=== PATIENT | male | born 1975 | race Caucasian/White ===

== ENCOUNTER → 2018-07-15 15:31 | Outpatient (CLI) | payer OTHER, SELFPAY ==
--- NOTE | 2018-07-15 15:41 | MRI_ITS ---
STUDY: MRI RIGHT ANKLE WITHOUT CONTRAST REASON FOR EXAM: Right heel pain with walking and running, evaluate for Achilles tendinitis. TECHNIQUE: Standardized fat and water weighted pulse sequences were obtained in all 3 orthogonal planes. COMPARISON: None. FINDINGS: Normal subcutis adipose space. There is very small volume of fluid in the proximal posterior tibialis tendon sheath (inversion recovery axial images 1, 2). The posterior tibialis tendon is morphologically normal. Normal flexor digitorum longus tendon. Normal flexor hallucis longus tendon. There is a small longitudinal split of the perimalleolar peroneus brevis tendon with a C shaped configuration (T1 axial images 12-16). Normal peroneus longus tendon. Normal tibialis anterior tendon. Normal extensor hallucis longus tendon. Normal extensor digitorum longus tendons. Normal Achilles tendon and teno-osseous insertion without increased intrasubstance signal or fusiform thickening. There is a small posterior calcaneal enthesophyte. There is no retrocalcaneal bursitis. Normal plantar fascia. There is a small plantar calcaneal enthesophyte. Normal intrinsic muscles of the rearfoot. Normal distal tibiofibular syndesmotic ligamentous complex. Normal lateral ligamentous complex. Normal subtalar ligaments and sinus tarsi. Normal deltoid ligamentous complexes. Normal plantar calcaneonavicular (spring) ligament. Normal tibiotalar articulation. Normal talar dome. There is a small anterior spur of the head/neck junction of the talus (T1 sagittal image 12) Normal subtalar articulations. Normal talonavicular articulation. Normal calcaneocuboid articulation. Normal navicular-cuneiform articulations. MRI/Lower Ext Joint Only (Routine) IMPRESSION: Small longitudinal split of the peroneus brevis tendon. Very mild posterior tibialis tenosynovitis. Small calcaneal enthesophytes. Small anterior spur of the head/neck junction of the talus. No demonstrated Achilles tendinosis. Electronically Signed: Gerard Mcclure MD at 14:44 EDT Tel , Service support ,
== END ==
PROVIDERS: Family Provider Nurse Practitioner Family; PCP Nurse Practitioner Family; Referring Provider Podiatrist; Visit Provider Podiatrist
DX: M76.61 Achilles tendinitis, right leg (principal); M77.31 Calcaneal spur, right foot
CPT/HCPCS: 73721

== ENCOUNTER → 2018-07-23 16:50 | Outpatient (CLI) | payer OTHER, SELFPAY ==
[2018-07-23 17:34] LABS: Absolute Lymphocyte Count 2.78 X10^3/ul (0.83-4.51); Absolute Neutrophil Count 4.6 X10^3/uL (2.0-7.7); Basophil# 0.03 X10^3/uL; Basophil% 0.4 % (0-1); Eosinophils% 1.2 % (0-5); Hematocrit 43.9 % (40-54); Hemoglobin 15.6 g/dl (13.0-16.5); Lymphocyte # 2.78 X10^3/ul (4.0); Lymphocyte % 33.9 % (19-41); Mean Corp Hgb Conc 35.5 g/gl (32-36); Mean Corpuscular Hgb 29.3 pg (27.0-32.0); Mean Corpuscular Volume 82.4 fL (80-94); Mean Platelet Vol. 11.7 fl (6.2-12.0); Monocyte# 0.66 X10^3/uL; Monocyte% 8.1 % (0-10); Neutrophil # 4.59 X10^3/uL (2.7-7.7); Platelet Count 210 K/mm3 (150-450); RBC Distribution Width CV 13.2 % (11.6-14.6); RBC Distribution Width SD 39.5 fl (35.1-43.9); Red Blood Count 5.33 M/mm3 (4.6-6.2); White Blood Count 8.2 K/mm3 (4.4-11.0)
[2018-07-23 17:36] LABS: POSITIVE COUNT NO; POSITIVE DIFFERENTIAL NO; POSITIVE MORPHOLOGY NO
[2018-07-23 17:58] LABS: Albumin, Serum 4.1 g/dL (3.2-5.0); BUN 16 mg/dL (7-18); BUN/Creat Ratio 13.3 RATIO (10-20); EST Glomerular Filtration Rate 70 mL/min (>60); Est Glom Filt Rate - Afr Amer 85 mL/min (>60); Glucose 89 mg/dL (74-106); Protein, Total 7.6 g/dL (6.4-8.2)
[2018-07-23 17:59] LABS: ALB/GLOB Ratio 1.2 RATIO (0.9-2.4); AST(SGOT) 31 U/L (15-37); Alanine Aminotransfer ALT/SGPT 52 U/L (16-61); Alkaline Phosphatase 50 U/L (45-117); Anion Gap 6 (5-15); Calcium,Total 9.6 mg/dL (8.5-10.1); Chloride 103 mmol/L (98-107); Globulin 3.5 g/dL (2.2-4.2); Potassium 3.7 mmol/L (3.5-5.1); Sodium Level 140 mmol/L (136-145)
== END ==
PROVIDERS: Family Provider Nurse Practitioner Family; PCP Nurse Practitioner Family; Visit Provider Family Medicine
DX: Z01.818 Encounter for other preprocedural examination (principal)
CPT/HCPCS: 36415; 80053; 85025

== ENCOUNTER 2018-08-08 07:52 | Day surgery (SDC) | payer OTHER, SELFPAY ==
[2018-08-08] VITALS (7 sets, daily range): BP systolic 101–140; BP diastolic 63–96; PULSE 61–84; RESP 15–18; TEMP 36.2–36.7; O2SAT 94–99; BMI 38.3
--- NOTE | 2018-08-08 09:30 | RAD_ITS ---
STUDY: X-RAY - RIGHT CALCANEUS REASON FOR EXAM: Male, 42 years old. Intraoperative assessment TECHNIQUE: A limited lateral view of the calcaneus was obtained. COMPARISON: Right ankle MRI dated July 15, 2018 FINDINGS: There are surgical changes along the upper posterior aspect of the calcaneus. There is air in the adjacent soft tissues. There is minimal spurring off the inferior calcaneus. Fluoroscopy time 12 seconds. Cumulative dose 0.1145 mGy. RAD/Calcaneus min 2 Views IMPRESSION: A limited lateral image of the right calcaneus was obtained intraoperatively. Electronically Signed: Vijaya Whyte MD at 17:03 EDT Tel Direct: [phone], Service support ,
--- NOTE | 2018-08-08 09:30 | TESH_PTH ---
PATIENT: SUSI CORONADO LOC: [facility] [place] U#:[id number] AGE/SX: 42/M ROOM: RE08/08/[address]: Dr. Allan Padron DPM : 1975 BED: DIS: 08/08/2018 SPEC #: [id number] RECD: 08/08/18 13:39 STATUS: REBECA PUJA #: [id number] DMITRIY: 08/08/18 09:[address]: Allan Padron DEPT: SURGICAL PATHOLOGY RECD BY: Roslyn Hartman ENTERED: 08/08/18 14:56 SP TYPE: TENDON OTHR DR: Pasha Haider, ACQUISITION MANAGER-Annie Tissues: Tendon and tendon sheath, NOS Procedures: Decalcification bone/plaque Surgery Specimen Level III HEADER OPERATION: Lower extremity, detach/reattach Achilles tendon with debridement PRE-OP DIAGNOSIS: Right foot retrocalcaneal spur, Clau's deformity, Achilles tendonitis TISSUE SUBMITTED: Resected right heel spur and debrided Achilles tendon tissue MICROSCOPIC DIAGNOSIS Resected right heel spur and debrided Achilles tendon tissue: Pieces of bone and soft tissue with reactive changes. NORAH:marc 08/13/18 MICROSCOPIC DESCRIPTION Slides are reviewed. GROSS DESCRIPTION Received in fixative is one container labeled with the patient's name and designated resected right heel spur. The specimen consists of multiple irregular and discoid fragments of clark-white bone that in aggregate measure 5 x 3 x 1.8 cm. Also present in the specimen container are two irregular fragments of white-clark soft tissue measuring in aggregate 2.5 x 2 x 0.2 cm. Lead Java Software Engineer sections of bone and soft tissue are submitted in two cassettes after decalcification. / AM:marc 08/08/18 TC:5 CPT: 63925, 34077
[2018-08-08] MEDS: Cefazolin 2 GM in 0.9% Normal Saline 100 ML IV (10:26)
[2018-08-08] MEDS: Bupivacaine Mpf 0.5% 30 ML VIAL (11:48)
--- NOTE | 2018-08-08 12:03 | PCM.DC.POD ---
Discharge Diet: No Restrictions Discharge Activity: May Not Drive Weight Bearing Status: No weight bearing - No weight right foot/ankle Keep extremity elevated above heart level: Right Leg - Keep right foot elevated for 50 minutes of every hour with pillows, keep heels offloaded Call your doctor if your incision/area has: Continuous Slow Oozing, Sudden Increased Bleeding, Foul Smelling Discharge Call your doctor if you observe: Fever of 101 or Higher, Shortness of breath, Chest pain, Increased palpitations (irregular heartbeat), Calf discomfort, Uncontrolled pain Cleanse incision/area with: Do not get Incision Wet, Keep Dressing Clean & Dry Allergies/Adverse Reactions: Allergies No Known Allergies Allergy (Verified 08/01/18 15:19) Medications to take at Discharge Lisinopril/Hydrochlorothiazide [Zestoretic 20/25 Tablet] 1 tablet PO DAILY 08/24/14 Multivitamins,Therapeutic [Multivitamin] 1 tablet PO DAILY 08/24/14 Fenofibrate Nanocrystallized [Fenofibrate] 160 mg PO DAILY 08/01/18 Oxycodone HCl/Acetaminophen [Percocet 5/325] 1 - 2 tab PO Q6H PRN PRN 3 Days #30 tab 08/08/18 Rivaroxaban [Xarelto] 10 mg PO DAILY #15 tab 08/08/18 The following prescriptions were given: Oxycodone HCl/Acetaminophen [Percocet 5/325] 1 - 2 tab PO Q6H PRN PRN 3 Days #30 tab PRN Reason: Pain Rivaroxaban [Xarelto] 10 mg PO DAILY #15 tab Primary Care Physician: Pasha Haider, NATIONAL ACCOUNTS RECRUITER-C [Primary Care Provider] - Test Results: Test results from this visit will be discussed in further detail at your follow-up appointment, if applicable. Please Follow Up With: Allan Padron DPM When: within 1 week, sooner if needed
--- NOTE | 2018-08-08 12:06 | DCINST_ITS ---
Discharge Diet: No Restrictions Discharge Activity: May Not Drive Weight Bearing Status: No weight bearing - No weight right foot/ankle Keep extremity elevated above heart level: Right Leg - Keep right foot elevated for 50 minutes of every hour with pillows, keep heels offloaded Call your doctor if your incision/area has: Continuous Slow Oozing, Sudden Increased Bleeding, Foul Smelling Discharge Call your doctor if you observe: Fever of 101 or Higher, Shortness of breath, Chest pain, Increased palpitations (irregular heartbeat), Calf discomfort, Uncontrolled pain Cleanse incision/area with: Do not get Incision Wet, Keep Dressing Clean & Dry Allergies/Adverse Reactions: Allergies No Known Allergies Allergy (Verified 08/01/18 15:19) Medications to take at Discharge Lisinopril/Hydrochlorothiazide [Zestoretic 20/25 Tablet] 1 tablet PO DAILY 08/24/14 Multivitamins,Therapeutic [Multivitamin] 1 tablet PO DAILY 08/24/14 Fenofibrate Nanocrystallized [Fenofibrate] 160 mg PO DAILY 08/01/18 Oxycodone HCl/Acetaminophen [Percocet 5/325] 1 - 2 tab PO Q6H PRN PRN 3 Days #30 tab 08/08/18 Rivaroxaban [Xarelto] 10 mg PO DAILY #15 tab 08/08/18 The following prescriptions were given: Oxycodone HCl/Acetaminophen [Percocet 5/325] 1 - 2 tab PO Q6H PRN PRN 3 Days #30 tab PRN Reason: Pain Rivaroxaban [Xarelto] 10 mg PO DAILY #15 tab Primary Care Physician: Pasha Haider, CARPENTER PACKING-C [Primary Care Provider] - Test Results: Test results from this visit will be discussed in further detail at your follow- up appointment, if applicable. Please Follow Up With: Allan Padron DPM When: within 1 week, sooner if needed
--- NOTE | 2018-08-08 12:06 | PCM.OPRPT ---
Report of Operation Date of Procedure: 08/08/18 Pre-Operative Diagnosis: Retrocalcaneal spur, haglunds deformity, achilles tendinosis right Post-Operative Diagnosis: Same Surgery/Procedure Performed:: Excision of retrocalcaneal spur/Clau's deformity with achilles tendon repair, right Description of Surgical Findings:: Significant retrocalcaneal spur and clau's deformity, insertional achilles tendinosis, right automobile service writer: Yes - Dr. Giraldo Type of Anesthesia:: General Specimen's removed: Excised retrocalcaneal spur/Clau's Deformity and debrided achilles tendon (right) sent to pathology Estimated Blood Loss (mL): 5mL Description of Procedure: Indications: This is a 42 year old gentleman with chronic right posterior heel pain. He had the same problem on the left side ~2 years ago, and did very well with surgical intervention. He has now elected to undergo right detach/reattach Achilles tendon with resection of posterior heel spur/exostosis Clau's deformity and debride/repair Achilles tendon. This was discussed with him in great detail, reviewed the possible benefits vs risks and potential complications. Typical post op recovery was reviewed with him. The goals and the expectations were reviewed with him in detail. The consent forms were reviewed with him in detail, and he freely signed them. No guarantees were given. All of his questions were answered. Operative Procedure: The patient was brought back into the operating room. A time out was performed and the patient was properly identified and the surgical plan was confirmed. The patient received 2 g of IV Cefazolin for antibiotic prophylaxis. A well padded pneumatic tourniquet was applied around the right thigh. The patient received general per the anesthesiologist. The patient was placed on the operating room table in the prone position, with good padding and offloading for the bony prominences. H was carefully secured to the operating room table with a safety belt around his waist. The right foot/ankle/leg was scrubbed, prepped, draped in the usual aseptic fashion. The right foot and ankle were elevated for 3 minutes and the right thigh pneumatic tourniquet was inflated to 300mmHg. Attention was directed to the posterior heel. There was a palpable exostosis and Clau's deformity present at the level of the posterior calcaneus. A linear incision was made using a 15 blade to the posterior aspect of the distal Achilles tendon and posterior calcaneus. Careful blunt dissection was completed down through the subcutaneous tissue layer, down to the Achilles tendon and posterior calcaneus. The distal Achilles tendon was incised at the level of the midline, and was partially reflected off of the central posterior calcaneus exposing the retrocalcaneal spur and Clau's deformity. The retrocalcaneal spur and the Clau's deformity was resected using a powered sagittal saw and a powered rasp, the resected bone was sent to pathology. The Achilles tendon was also noted to be thickened, calcified, hard with nonviable tissue present at the level of the insertion point; this was debrided down to healthy viable normal tendon. The debrided tendon was sent to pathology as well with the resected bone. Otherwise the rest of the tendon was noted to be healthy and viable appearing. The site was flushed out with copious amounts of normal saline solution. The Achilles tendon was reattached to the central portion of the posterior calcaneus using 1 Arthrex Speedbridge using the standard manufacture's recommended technique as listed in the technique guide. 3-0 Vicryl was also used to reapproximate the midline Achilles tendon incision. The subcutaneous tissue layer was reapproximated using 3-0 Vicryl. the skin was reapproximated using 4-0 Monocryl. Intraoperative fluoroscopy was obtained confirming proper resection of the spur and Clau deformity. The pneumatic tourniquet was deflated at 57 minutes, there was immediate return of warmth and perfusion to the foot and to all toes on the foot with normal temperature present. CFT < 2 seconds to all toes. 7.5mL of 0.5% bupivacaine plain was given as a local nerve block around the surgical site. A dressing was applied which consisted of Cavilon to the sutured skin incisions, steristrips, Betadine soaked adaptic, 4x4 gauze, kerlix and cheryl bandage, and a well padded below the knee posterior splint offloading the posterior heel. The patient tolerated the above operative procedure well at the anesthesia well with no complication. The patient was carefully repositioned into the supine position. The patient was transported to the recovery room with vital signs stable and in good condition. Post operative orders were placed. Post operative instructions were reviewed with him as well as his , who was with him today. No weightbearing right foot, keep right foot elevated for at least 50 minutes of every hour, keep dressing clean, dry and intact. Keep heel offloaded at all times. Prescription for Percocet 5mg/325mg was prescribed: 1-2 tabs PO q 6 hours PRN pain for pain control, as well as Xarelto 10mg PO once a day for DVT prophylaxis. He is to follow up with me within 1 week or sooner if needed. Post operative right calcaneal xrays were obtained in the recovery room which confirmed resection of the retrocalcaneal spur / Clau deformity, otherwise no acute changes and stable xrays. Grafts/Implants Used: Arthrex Speedbridge - Complications None
--- NOTE | 2018-08-08 12:31 | RAD_ITS ---
STUDY: X-RAY - RIGHT CALCANEUS REASON FOR EXAM: Male, 42 years old. Postop TECHNIQUE: 3 view(s) of the calcaneus were obtained. COMPARISON: None. FINDINGS: Postoperative changes involving the dorsal calcaneus. Subtalar joints are intact. Soft tissues are intact. RAD/Calcaneus min 2 Views IMPRESSION: Postoperative changes involving the dorsal calcaneus. Electronically Signed: Kenny Loya MD at 22:10 EDT Tel , Service support ,
== END 2018-08-08 13:36 | disposition home or self-care (01) ==
LOC: SDC 07:53 → AC 07:54
PROVIDERS: Family Provider Nurse Practitioner Family; PCP Nurse Practitioner Family; Referring Provider Podiatrist; Visit Provider Podiatrist
PROC: (CPT 28899; principal; 2018-08-08 09:15)
DX: M77.31 Calcaneal spur, right foot (principal); M92.61 Juvenile osteochondrosis of tarsus, right ankle; M89.9 Disorder of bone, unspecified; I10 Essential (primary) hypertension; E78.00 Pure hypercholesterolemia, unspecified
CPT/HCPCS: 01472; 27650; 28119; 73650; 76000; 88304; 88311; C1713; J7120; J2405

== ENCOUNTER → 2018-09-17 11:01 | Outpatient (CLI) | payer OTHER, SELFPAY ==
--- OUTSIDE RECORDS SUMMARY | 2018-11-03 13:54 | XMS RPT_ITS ---
:1975 Author Organization [place] Support Name Relationship Address Phone CORONADO ADRIENNE Unavailable Unavailable + CORONADO, ADRIENNE Unavailable Unavailable + CORONADO, ADRIENNE Unavailable Unavailable + CORONADO, ADRIENNE Unavailable Unavailable + CORONADO, KEVIN Unavailable [address] + [place] [address] [facility] Unavailable [address] + [place] [address] CORONADO, KEVIN Unavailable [address] + [place] [address] [facility] Unavailable [address] + [place] [address] CORONADO, ADRIENNE Unavailable Unavailable + CORONADO, ADRIENNE Unavailable Unavailable + CORONADO, ADRIENNE Unavailable Unavailable + CORONADO, ADRIENNE Unavailable Unavailable + CORONADO, KEVIN Unavailable [address] + [place] [address] [facility] Unavailable [address] + [place] [address] CORONADO, KEVIN Unavailable [address] + [place] [address] [facility] Unavailable [address] + [place] [address] CORONADO, KEVIN Unavailable [address] + [place] [address] [facility] Unavailable [address] + [place] [address] CORONADO, ADRIENNE Unavailable Unavailable + CORONADO, ADRIENNE Unavailable Unavailable + Care Team Providers Name Role Phone PASHA HAIDER CNP Attending Unavailable PASHA HAIDER CNP Primary Care Unavailable PASHA HAIDER CNP Attending Unavailable PASHA HAIDER CNP Primary Care Unavailable PASHA HAIDER CNP Attending Unavailable PASHA HAIDER CNP Primary Care Unavailable PASHA HAIDER CNP Attending Unavailable EARNEST MANN, PASHA Knight Primary Care Unavailable PASHA HAIDER CNP Attending Unavailable PASHA HAIDER CNP Primary Care Unavailable Elielnning, Allan Attending Unavailable Vito, Allan Referring Unavailable Pasha Haider FISH WORM GROWER-C Primary Care Unavailable Pasha Haider [employer]-C Primary Care Unavailable Neil Dixon Attending Unavailable Vito, Allan Attending Unavailable Pasha Haider [employer] WORM GROWER-C Primary Care Unavailable Wunning, Allan Referring Unavailable Mary White Attending Unavailable Pasha Haider [employer] W[employer] GROWER-C Primary Care Unavailable Wunning, Allan Consulting Unavailable Wunngisell, Allan Attending Unavailable Elielnngisell, Allan Referring Unavailable Pasha Haider [employer]-C Primary Care Unavailable PROBLEMS PROBLEMS DATE TYPE CONDITION / CODE ATTENDING STATUS SOURCE 08/26/2018 Admitting Metabolic syndrome EARNEST MANN, Active [facility] Diagnosis / E88.81(ICD-10) PASHA Neff Repository 08/08/2018 Unknown M76.61 - Achilles Wunning, Active Renetta tendinitis, right [facility] leg / Hospital M76.61(ICD-10) Repository 08/08/2018 Unknown M77.31 - Calcaneal Wunning, Active [place] spur, right foot / [facility] M77.31(ICD-10) Hospital Repository 02/25/2018 Admitting Essential EARNEST MANN, [facility] (primary) PASHA Neff hypertension / Repository I10(ICD-10) 02/25/2018 Admitting Hyperlipidemia, 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, 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 [facility] Diagnosis unspecified / PASHA Neff E78.5(ICD-10) Repository PROCEDURES PROCEDURES No Procedure Records FoundRESULTS RESULTS TSH Collected: 10/02/2018 Status: F Source: [place] 9:57 AM [facility] REPOSITORY TYPE CODE TESTS RESULT OUT OF RANGE REFERENCE UNITS LAB TSH(LOINC) 0.36-3.74 mcIU/mL TSH 0.90 Performed By: #### TSH, FT4 #### [facility] [address] [place] [address] FT4 Collected: 10/02/2018 Status: F Source: [facility] 9:57 AM [facility] REPOSITORY TYPE CODE TESTS RESULT OUT OF RANGE REFERENCE UNITS LAB FT4(LOINC) 0.76-1.46 ng/dL Free T4 0.85 Performed By: #### TSH, FT4 #### [facility] [address] [place] [address] NM MYOCARDIAL SPECT Observed: 10/01/2018 Status: F Source: [place] STRESS/REST 8:30 AM [facility] REPOSITORY ORIGINAL NM MYOCARDIAL SPECT STRESS/REST CLINICAL STATEMENT: CHEST PAIN TECHNIQUE: Lexiscan dose:0.4 mg Radiopharmaceutical (stress): Tc-99m Sestamibi Dose:10.6 mCi Radiopharmaceutical (rest): Tc-99m Sestamibi Dose:31.5 mCi SPECT acquisition and processing Reconstruction and reorientation of SPECT images into short axis, vertical and horizontal long axis planes Quantitative LVEF assessment COMPARISON:None REPORT:Left ventricle appears mildly dilated on both stress and rest images. On the resting images, there is reduced radiotracer uptake in the anterior/anteroseptal, inferoapical and basal to mid inferior region. On the stress images, there is near normalization of resting perfu paulina defect in the inferior region as well as anterior and/anteroseptal region, suggestive of inferior diaphragmatic and soft tissue/breast attenuation artifact. Rest of the myocardium has homogenous radiotracer uptake on the stress images. Gated SPECT imaging revealed normal wall motion and normal end systolic brightening and thickening of all myocardial segments. Calculated LVEF 52%. TID ratio 1.0 and left ventricle end-diastolic volume 155 mL. IMPRESSION: 1. No evidence of inducible ischemia or prior myocardial infarction. 2. Abnormal septal motion with normal left ventricular systolic function, LVEF 52%. 3. Mildly dilated left ventricle. 4. No prior study available for comparison. Interpreted By: Thien Beach Preliminary Report By: Thien Beach Electronically Signed By: Thien Beach Dictated Date: 10/01/2018 12:35:25 PM Prelim Date: 10/01/2018 12:35:25 PM Sign Date: 10/01/2018 12:40:19 PM EMERGENCY DEPARTMENT Observed: 09/25/2018 Status: F Source: [place] SUMMARY 8:52 PM [facility] REPOSITORY [facility] Medical Records Department [address] [place] [address] Emergency Department Summary 09/25/189 MR#: [id number] Acct: [id number] Name: SUSI CORONADO Rep #: [id number] : 1975 43 From: Neil Dixon MD PCP: TWIN Tamayo Status: REG ER - ER Visit Summary Date of Service: 09/25/18 Chief Complaint: Acute right leg swelling History of Present Illness: The patient is a 43 M who is 7 weeks postop right heel spur. He was sent to the emergency room to evaluate for DVT. He states the swelling started past 24-48 hours. He denies chest pain or shortness of breath. He denies right lower extremity pain. He denies paresthesia, anesthesia motors. He has no symptoms of claudication. There is a history hypertension. Physical Examination: The right lower extremity is swollen. There is no leg vein distention. There is no palpable cords. DP and PT pulses are palpable. He has full active range of motion of his toes, ankle and knee. Heart is regular without murmur, gallop or rub. Lungs are clear to auscultation. Vital signs noted and blood pressure is elevated 167/91. Test Results: Venous duplex study of the right lower extremity was negative for DVT per radiologist Emergency Department Course and Treatment: Venous duplex to evaluate for DVT versus lymphedema Treatment Plan: Home-going instructions for lymphedema Disposition: Discharged home in stable condition with spouse Impression: Lymphedema right lower extremity status post surgery This note was generated with AIMation software. It may contain incorrect words, spelling, and punctuation that were not noted in review of the chart prior to signing ED Disposition - Plan for ED Patient: Disposition: Home or Assisted Living Chief Complaint: Lower Extremity Injury Instructions: ED Lymphedema Referrals: Pasha Haider NP-C [Primary Care Provider] - As Needed What to do if you have Problems For any increased pain, shortness of breath, bleeding, nausea or vomiting, chest pain, or any unexpected problems, contact your Primary Care Provider. Call [facility] ([phone]) or report to the closest Emergency Room. Call 911 if necessary. 09/25/182051 <Electronically signed by Neil Dixon MD> Date Neil Dixon MD Cosigner Signature (If Indicated): Date CC: TWIN Haider VENOUS DUPLEX Observed: 09/25/2018 Status: F Source: [place] IMAG/LIMITED/UNI 7:55 PM [facility] REPOSITORY [facility] Imaging Services [address] [place] [address] Venous Duplex Imag/Limited/Uni MR#: [id number] Acct: [id number] Name: SUSI CORONADO Tracey Rep #: [id number] : 1975 43 From: Allan Mccartney MD PCP: TWIN Tamayo Status: REG ER Study: Venous Duplex Imag/Limited/Uni Date of Exam: 09/25/18 Exam# [id number] Ordering Dr: Neil Dixon MD STUDY: VENOUS DOPPLER ULTRASOUND - RIGHT LOWER EXTREMITY REASON FOR EXAM: Male, 43 years old. Swelling TECHNIQUE: Ultrasound evaluation of the deep vein system to include nicolas-scale imaging and compression was performed. Nicolas-scale imaging and Doppler sonographic evaluation, including duplex spectral analysis and qualitative color flow sonography, was performed. COMPARISON: None. FINDINGS: Common Femoral Vein: Normal compression, spontaneity and augmentation. Normal color Doppler. Common Femoral Vein/Greater Saphenous Junction: Normal compression, spontaneity and augmentation. Normal color Doppler. Deep Femoral Vein: Normal compression, spontaneity and augmentation. Normal color Doppler. Femoral Proximal: Normal compression, spontaneity and augmentation. Normal color Doppler. Femoral Middle: Normal compression, spontaneity and augmentation. Normal color Doppler. Femoral Distal: Normal compression, spontaneity and augmentation. Normal color Doppler. Popliteal Vein: Normal compression, spontaneity and augmentation. Normal color Doppler. Posterior Tibial Vein: Normal compression, spontaneity and augmentation. Normal color Doppler. Peroneal Vein: Normal compression, spontaneity and augmentation. Normal color Doppler. US/Venous Duplex Imag/Limited/Uni IMPRESSION: Normal venous Doppler ultrasound of the lower extremity. Electronically Signed: Allan Mccartney MD at 20:38 EST , Service support , CC: TWIN Haider; Neil Dixon MD Rn Transitional Care: Signed Observed: 09/17/2018 Status: F Source: [place] CULTURE, DEEP WOUND 12:00 AM [facility] REPOSITORY AEROBIC SWAB ONLY RECEIVED. ANAEROBES MAY BE AFFECTED. Gram Stain Gram Stain No organisms seen Wound Culture ORGANISM 1: Staphylococcus aureus Amount Growth 3+ Staphylococcus aureus: REACTION Benzylpenicillin NF >=0.5 R Cefoxitin *NF - Clindamycin $$ <=0.25 S Inducable Clindamycin Resistan - Erythromycin $ <=0.25 S Gentamicin $ <=0.5 S Levofloxacin $ <=0.12 S Linezolid $$$$ 2 S Moxifloxicin *NF <=0.25 S Oxacillin NF 0.5 S Tigecycline $$$$ <=0.12 S Rifampin $$ <=0.5 S Tetracycline NF <=1 S Trimethoprim/Sulfametho $ <=10 S Vancomycin $ 1 S (NF) indicates non-formulary drug at [facility]. Approval by Infectious Disease Specialist required before non-formulary drugs may be ordered and/or dispensed. * CLSI guidelines does not recommend testing of cephalosporins. This interpretation is deduced from Beta-lactam/penicillin results. Cult, Anaerobic No anaerobic bacteria isolated. Performed By: #### M100.1500 #### [facility] [place], [address] CT ANGIOGRAPHY CHEST Observed: 09/12/2018 Status: F Source: [place] W/CONTRAST 10:00 AM [facility] REPOSITORY ORIGINAL CT PULMONARY ANGIOGRAM WITH IV CONTRAST: with post-processing, volume rendering and 3-D acquisitions. This exam was performed according to our departmental dose optimization program, and includes the fo llowing measures where applicable: automated exposure control, adjustment of the mAs and/or kVp according to patient size and/or exam, and an iterative reconstruction algorithm. CLINICAL STATEMENT:CHEST WALL PAIN FOLLOWING SURGERY, SOB, ON EXERTION. COMPARISON:None. FINDINGS: The visualized thyroid gland is unremarkable. There is no axillary adenopathy. No mediastinal or hilar adenopathy. The heart is not enlarged. No pericardial effusion. Limited images of the upper abdomen demonstrate significant diffuse hypodensity of the liver likely indicating prominent fatty infiltration. There is colonic diverticulosis. There is adequate contrast opacification of the pulmonary arteries. There is artifact from dense contrast in the superior vena cava as well as motion artifact which degrades evaluation. No definite fill ing defect is seen in the pulmonary arteries the level of segmental arteries to suggest pulmonary embolus. There are mild dependent atelectatic changes bilaterally. No pleural effusion or pneumothorax. Multilevel degenerative changes are present in the spine. IMPRESSION: 1. No pulmonary embolus to the level of the segmental pulmonary arteries. 2. Fatty liver. Interpreted By: Alison Vicente MD Preliminary Report By: Alison Vicente MD Electronically Signed By: Alison Vicente MD Dictated Date: 09/12/2018 10:15:06 AM Prelim Date: 09/12/2018 10:15:06 AM Sign Date: 09/12/2018 10:28:45 AM CBC Collected: 08/26/2018 Status: F Source: [place] 7:32 AM [facility] REPOSITORY TYPE CODE TESTS RESULT OUT OF REFERENCE UNITS RANGE LAB WBC(LOINC) 4.60-10.80 10 3/mcL WBC 10.70 LAB RBCCT(LOINC 4.04-6.13 10 6/mcL ) RBC 5.61 LAB HGB(LOINC) 14.0-18.0 G/dL Hgb 16.1 LAB HCT(LOINC) 42.0-52.0 % Hct 47.5 LAB MCV(LOINC) 80.0-94.0 fL MCV 84.7 LAB MCH(LOINC) 27.0-31.2 pg MCH 28.6 LAB MCHC(LOINC) 31.8-35.4 G/dL MCHC 33.8 LAB RDW(LOINC) 11.5-14.5 % RDW 13.7 LAB PLT(LOINC) 130-400 10 3/mcL Platelet 301 LAB MPV(LOINC) 7.4-10.4 fL MPV 9.6 Performed By: #### CBC, ADIFF, ANEU #### [address] [address] #### LIPID, CMP, GFR #### [address] [id number] .AUTO DIFF Collected: 08/26/2018 Status: F Source: [facility] 7:32 AM [facility] REPOSITORY TYPE CODE TESTS RESULT OUT OF REFERENCE UNITS RANGE LAB GAIL(LOINC) 37.0-80.0 % Neutrophil % 59.4 LAB LYM(LOINC) 10.0-50.0 % Lymphocyte % 28.1 LAB MON(LOINC) 1.7-13.0 % Monocyte % 10.6 LAB EO(LOINC) 0.0-7.0 % Eosinophil % 1.3 LAB BAS(LOINC) 0.0-2.5 % Basophil % 0.6 LAB ABLYM(LOIN 0.77-3.85 10 3/mcL C) Lymphocyte, 3.00 Absolute LAB JEFERSON(LOINC 0.15-1.00 10 3/mcL ) High Monocyte, 1.10 Absolute LAB AEOS(LOINC 0.00-0.40 10 3/mcL ) Eosinophil, 0.10 Absolute LAB ABAS(LOINC 0.00-0.19 10 3/mcL ) Basophil, 0.10 Absolute Performed By: #### CBC, ADIFF, ANEU #### [address] [address] #### LIPID, CMP, GFR #### [address] [id number] .NEUABS Collected: 08/26/2018 Status: F Source: [facility] 7:32 AM [facility] REPOSITORY TYPE CODE TESTS RESULT OUT OF REFERENCE UNITS RANGE LAB ANEU(LOINC) 2.85-6.16 10 3/mcL High Neutrophil, 6.30 Absolute Performed By: #### CBC, ADIFF, ANEU #### [address] [place], [place] [address] #### LIPID, CMP, GFR #### [address] [id number] LIPID Collected: 08/26/2018 Status: F Source: [facility] 7:32 AM [facility] REPOSITORY TYPE CODE TESTS RESULT OUT OF REFERENCE UNITS RANGE LAB CHOL(LOINC 0-200 mg/dL ) Cholesterol High 201 Result Comment: Cholesterol Reference Interval: Less than 200 Desirable 200-239 Borderline high risk 240 and above High risk LAB TRIG(LOINC) 0-150 mg/dL Triglycerides High 266 Result Comment: Triglyceride Reference Interval: Less than 150 Normal 150-199 Borderline high risk 200-499 High risk 500 or higher Very high risk LAB HD(LOINC) 40-60 mg/dL HDL Low Cholesterol 34 LAB LDL(LOINC) 0-130 mg/dL LDL Cholesterol 114 Performed By: #### CBC, ADIFF, ANEU #### [address] [address] #### LIPID, CMP, GFR #### [address] [id number] CMP Collected: 08/26/2018 Status: F Source: [facility] 7:32 AM [facility] REPOSITORY TYPE CODE TESTS RESULT OUT OF REFERENCE UNITS RANGE LAB GLU(LOINC) 70-105 mg/dL Glucose High Level 106 LAB NA(LOINC) 136-145 mmol/L Sodium Level 140 LAB K(LOINC) 3.5-5.1 mmol/L Potassium Level 3.9 LAB CL(LOINC) 98-107 mmol/L Chloride 104 LAB CO2(LOINC) 22-29 mmol/L CO2 29 LAB EBAL(LOINC mEq/L ) Electrolyte Balance 7.0 LAB BUN(LOINC) 7-18 mg/dL BUN High 19 LAB CRE(LOINC) 0.70-1.30 mg/dL Creatinine High Lvl (s) 1.42 LAB BC(LOINC) 7-27 ratio BUN/Creatinine 13 Ratio LAB CA(LOINC) 8.4-10.2 mg/dL Calcium Lvl 8.9 LAB PROT(LOINC 6.4-8.2 G/dL ) Total Protein 7.6 LAB ALB(LOINC) 3.5-5.0 G/dL Albumin Level 4.2 LAB GLB(LOINC) G/dL Globulin 3.4 LAB AG(LOINC) 1.1-2.5 ratio A/G Ratio 1.2 LAB BILT(LOINC 0.2-1.0 mg/dL ) Bili Total 0.3 LAB AP(LOINC) 40-135 U/L Alk Phos 43 LAB AST(LOINC) 10-40 U/L AST/SGOT 24 LAB ALT(LOINC) 10-35 U/L ALT/SGPT High 50 Performed By: #### CBC, ADIFF, ANEU #### [facility] [address] [place], [place] [address] #### LIPID, CMP, GFR #### [address] [id number] .GFR Collected: 08/26/2018 Status: F Source: [facility] 7:32 AM [facility] REPOSITORY TYPE CODE TESTS RESULT OUT OF REFERENCE UNITS RANGE LAB GFRAA(LOINC ml/min/1.73 ) sqm GFR 66 Maur[place]ian Result Comment: GFR Population mean for , Non- Americans Ages 20-29 = 116 mL/min/1.73 sq.m. Ages 30-39 = 107 mL/min/1.73 sq.m. Ages 40-49 = 99 mL/min/1.73 sq.m. Ages 50-59 = 93 mL/min/1.73 sq.m. Ages 60-69 = 85 mL/min/1.73 sq.m. Ages 70+ = 75 mL/min/1.73 sq.m. Chronic Kidney Disease: Less than 60 mL/min/1.73 square meters End Stage Renal Disease: Less than 15 mL/min/1.73 square meters LAB GFRNO(LOINC) ml/min/1.73sqm GFR Non- 54 Result Comment: GFR Population mean for , Non- Americans Ages 20-29 = 116 mL/min/1.73 sq.m. Ages 30-39 = 107 mL/min/1.73 sq.m. Ages 40-49 = 99 mL/min/1.73 sq.m. Ages 50-59 = 93 mL/min/1.73 sq.m. Ages 60-69 = 85 mL/min/1.73 sq.m. Ages 70+ = 75 mL/min/1.73 sq.m. Chronic Kidney Disease: Less than 60 mL/min/1.73 square meters End Stage Renal Disease: Less than 15 mL/min/1.73 square meters Performed By: #### CBC, ADIFF, ANEU #### [facility] [address] [place], [place] [address] #### LIPID, CMP, GFR #### [facility] [address] [place] [id number] OPERATIVE REPORT Observed: 08/09/2018 Status: F Source: [place] 6:37 AM [facility] REPOSITORY [facility] Medical Records Department [address] [place] [address] [place] [address] Operative Report 08/08/18 1206 MR#: [id number] Acct: [id number] Name: IVONNESUSI P Rep #: [id number] : 1975 42 From: Allan Padron DPM PCP: TWIN Tamayo Status: [facility] Location: [facility] ADDENDUM by Allan Padron DPM on 08/09/18 at 0637 Code Visit The Achilles tendon was also noted to be thickened, calcified, hard with nonviable tissue w/ fraying and tear present at the distal level; this was debrided down to healthy viable normal tendon. The debrided tendon was sent to pathology as well with the resected bone. Otherwise the rest of the tendon was noted to be healthy and viable appearing. The site was flushed out with copious amounts of normal saline solution. The Achilles tendon was reattached to the central portion of the posterior calcaneus using 1 Arthrex Speedbridge using the standard manufacture's recommended technique as listed in the technique guide. 3- 0 Vicryl was also used to repair the Achilles tendon. 08/09/18 0637 <Electronically signed by Allan Padron DPM> Date Allan Padron DPM cc: TWIN Haider; Allan Padron DPM * Signed Report of Operation Date of Procedure: 08/08/18 Pre-Operative Diagnosis: Retrocalcaneal spur, haglunds deformity, achilles tendinosis right Post-Operative Diagnosis: Same Surgery/Procedure Performed:: Excision of retrocalcaneal spur/Clau's deformity with achilles tendon repair, right Description of Surgical Findings:: Significant retrocalcaneal spur and clau's deformity, insertional achilles tendinosis, right chemical dependency therapist: Yes - Dr. Giraldo Type of Anesthesia:: General Specimen's removed: Excised retrocalcaneal spur/Clau's Deformity and debrided achilles tendon (right) sent to pathology Estimated Blood Loss (mL): 5mL Description of Procedure: Indications: This is a 42 year old gentleman with chronic right posterior heel pain. He had the same problem on the left side 2 years ago, and did very well with surgical intervention. He has now elected to undergo right detach/reattach Achilles tendon with resection of posterior heel spur/exostosis Clau's deformity and debride/repair Achilles tendon. This was discussed with him in great detail, reviewed the possible benefits vs risks and potential complications. Typical post op recovery was reviewed with him. The goals and the expectations were reviewed with him in detail. The consent forms were reviewed with him in detail, and he freely signed them. No guarantees were given. All of his questions were answered. Operative Procedure: The patient was brought back into the operating room. A time out was performed and the patient was properly identified and the surgical plan was confirmed. The patient received 2 g of IV Cefazolin for antibiotic prophylaxis. A well padded pneumatic tourniquet was applied around the right thigh. The patient received general per the anesthesiologist. The patient was placed on the operating room table in the prone position, with good padding and offloading for the bony prominences. H was carefully secured to the operating room table with a safety belt around his waist. The right foot/ankle/leg was scrubbed, prepped, draped in the usual aseptic fashion. The right foot and ankle were elevated for 3 minutes and the right thigh pneumatic tourniquet was inflated to 300mmHg. Attention was directed to the posterior heel. There was a palpable exostosis and Clau's deformity present at the level of the posterior calcaneus. A linear incision was made using a 15 blade to the posterior aspect of the distal Achilles tendon and posterior calcaneus. Careful blunt dissection was completed down through the subcutaneous tissue layer, down to the Achilles tendon and posterior calcaneus. The distal Achilles tendon was incised at the level of the midline, and was partially reflected off of the central posterior calcaneus exposing the retrocalcaneal spur and Clau's deformity. The retrocalcaneal spur and the Clau's deformity was resected using a powered sagittal saw and a powered rasp, the resected bone was sent to pathology. The Achilles tendon was also noted to be thickened, calcified, hard with nonviable tissue present at the level of the insertion point; this was debrided down to healthy viable normal tendon. The debrided tendon was sent to pathology as well with the resected bone. Otherwise the rest of the tendon was noted to be healthy and viable appearing. The site was flushed out with copious amounts of normal saline solution. The Achilles tendon was reattached to the central portion of the posterior calcaneus using 1 Arthrex Speedbridge using the standard manufacture's recommended technique as listed in the technique guide. 3-0 Vicryl was also used to reapproximate the midline Achilles tendon incision. The subcutaneous tissue layer was reapproximated using 3-0 Vicryl. the skin was reapproximated using 4-0 Monocryl. Intraoperative fluoroscopy was obtained confirming proper resection of the spur and Clau deformity. The pneumatic tourniquet was deflated at 57 minutes, there was immediate return of warmth and perfusion to the foot and to all toes on the foot with normal temperature present. CFT < 2 seconds to all toes. 7.5mL of 0.5% bupivacaine plain was given as a local nerve block around the surgical site. A dressing was applied which consisted of Cavilon to the sutured skin incisions, steristrips, Betadine soaked adaptic, 4x4 gauze, kerlix and cheryl bandage, and a well padded below the knee posterior splint offloading the posterior heel. The patient tolerated the above operative procedure well at the anesthesia well with no complication. The patient was carefully repositioned into the supine position. The patient was transported to the recovery room with vital signs stable and in good condition. Post operative orders were placed. Post operative instructions were reviewed with him as well as his , who was with him today. No weightbearing right foot, keep right foot elevated for at least 50 minutes of every hour, keep dressing clean, dry and intact. Keep heel offloaded at all times. Prescription for Percocet 5mg/325mg was prescribed: 1-2 tabs PO q 6 hours PRN pain for pain control, as well as Xarelto 10mg PO once a day for DVT prophylaxis. He is to follow up with me within 1 week or sooner if needed. Post operative right calcaneal xrays were obtained in the recovery room which confirmed resection of the retrocalcaneal spur / Clau deformity, otherwise no acute changes and stable xrays. Grafts/Implants Used: Arthrex Speedbridge - Complications None 08/08/181811 <Electronically signed by Allan Padron DPM> Date Allan Padron DPM CC: FISH WORM GROWER-C Pasha Haider; Allan Padron DPM Signed DISCHARGE INSTRUCTION Observed: 08/08/2018 Status: F Source: [place] 12:06 PM [facility] REPOSITORY [facility] Medical Records Department [address] [place] [address] Instructions for Home/Discharge Instructions 08/08/18 1203 MR#: [id number] Acct: [id number] Name: SUSI CORONADO Rep #: [id number] : 1975 42 From: Allan Padron DPM PCP: TWIN Tamayo Status: REG SDC Discharge Diet: No Restrictions Discharge Activity: May Not Drive Weight Bearing Status: No weight bearing - No weight right foot/ankle Keep extremity elevated above heart level: Right Leg - Keep right foot elevated for 50 minutes of every hour with pillows, keep heels offloaded Call your doctor if your incision/area has: Continuous Slow Oozing, Sudden Increased Bleeding, Foul Smelling Discharge Call your doctor if you observe: Fever of 101 or Higher, Shortness of breath, Chest pain, Increased palpitations (irregular heartbeat), Calf discomfort, Uncontrolled pain Cleanse incision/area with: Do not get Incision Wet, Keep Dressing Clean AND Dry Allergies/Adverse Reactions: Allergies No Known Allergies Allergy (Verified 08/01/18 15:19) Medications to take at Discharge Lisinopril/Hydrochlorothiazide [Zestoretic 20/25 Tablet] 1 tablet PO DAILY 08/24/14 Multivitamins,Therapeutic [Multivitamin] 1 tablet PO DAILY 08/24/14 Fenofibrate Nanocrystallized [Fenofibrate] 160 mg PO DAILY 08/01/18 Oxycodone HCl/Acetaminophen [Percocet 5/325] 1 - 2 tab PO Q6H PRN PRN 3 Days #30 tab 08/08/18 Rivaroxaban [Xarelto] 10 mg PO DAILY #15 tab 08/08/18 The following prescriptions were given: Oxycodone HCl/Acetaminophen [Percocet 5/325] 1 - 2 tab PO Q6H PRN PRN 3 Days #30 tab PRN Reason: Pain Rivaroxaban [Xarelto] 10 mg PO DAILY #15 tab Primary Care Physician: Pasha Haider NP-C [Primary Care Provider] - Test Results: Test results from this visit will be discussed in further detail at your follow-up appointment, if applicable. Please Follow Up With: Allan Padron DPM When: within 1 week, sooner if needed 08/08/18 1206 <Electronically signed by Allan Padron DPM> Date Allan Padron DPM CC: TWIN Haider CALCANEUS MIN 2 VIEWS Observed: 08/08/2018 Status: F Source: [place] 12:04 PM [facility] REPOSITORY [facility] Imaging Services [address] [place] [address] Calcaneus min 2 Views MR#: [id number] Acct: [id number] Name: SUSI CORONADO Rep #: [id number] : 1975 M 42 From: Kenny Loya MD PCP: TWIN Tamayo Status: [facility] Study: Calcaneus min 2 Views Date of Exam: 08/08/18 Exam# [id number] Ordering Dr: Allan Padron DPM STUDY: X-RAY - RIGHT CALCANEUS REASON FOR EXAM: Male, 42 years old. Postop TECHNIQUE: 3 view(s) of the calcaneus were obtained. COMPARISON: None. FINDINGS: Postoperative changes involving the dorsal calcaneus. Subtalar joints are intact. Soft tissues are intact. RAD/Calcaneus min 2 Views IMPRESSION: Postoperative changes involving the dorsal calcaneus. Electronically Signed: Kenny Loya MD at 22:10 EDT Tel , Service support , CC: FISH WORM GROWER-C Pasha Haider; Allan Padron DPM Rn Transitional Care: Signed TENDON/OR TENDON Observed: 08/08/2018 Status: F Source: [place] 9:30 AM [facility] REPOSITORY Patient: SUSI CORONADO : 1975 (42/M) Acct Num: [id number] Phys: Allan Padron DPM Unit Num: [id number] Loc: [facility] [place] Specimen: [id number] Received: 08/08/18 - 1339 Spec Type: TENDON TISSUES 1 TISSUES: Tendon and tendon sheath, NOS GROSS DESCRIPTION Received in fixative is one container labeled with the patient's name and designated resected right heel spur. The specimen consists of multiple irregular and discoid fragments of clark-white bone that in aggregate measure 5 x 3 x 1.8 cm. Also present in the specimen container are two irregular fragments of white-clark soft tissue measuring in aggregate 2.5 x 2 x 0.2 cm. Human Factors Scientist sections of bone and soft tissue are submitted in two cassettes after decalcification. / AM:marc 08/08/18 TC:5 CPT: 18310, 07111 HEADER OPERATION: Lower extremity, detach/reattach Achilles tendon with debridement PRE-OP DIAGNOSIS: Right foot retrocalcaneal spur, Clau's deformity, Achilles tendonitis TISSUE SUBMITTED: Resected right heel spur and debrided Achilles tendon tissue MICROSCOPIC DESCRIPTION Slides are reviewed. MICROSCOPIC DIAGNOSIS Resected right heel spur and debrided Achilles tendon tissue: Pieces of bone and soft tissue with reactive changes. SJ:marc 08/13/18 Signed Greg Tineo 08/13/18 <signature on file> Performed By: #### PTHENNY #### [facility] [address] [facility] [place], [address] CALCANEUS MIN 2 VIEWS Observed: 08/08/2018 Status: F Source: [place] 12:06 [facility] REPOSITORY [facility] Imaging Services [address] [place] [address] Calcaneus min 2 Views MR#: [id number] Acct: [id number] Name: SUSI CORONADO Tracey Rep #: [id number] : 1975 M 42 From: Vijaya Whyte MD PCP: TWIN Tamayo Status: [facility] Study: Calcaneus min 2 Views Date of Exam: 08/08/18 Exam# [id number] Ordering Dr: Allan Padron DPM STUDY: X-RAY - RIGHT CALCANEUS REASON FOR EXAM: Male, 42 years old. Intraoperative assessment TECHNIQUE: A limited lateral view of the calcaneus was obtained. COMPARISON: Right ankle MRI dated July 15, 2018 FINDINGS: There are surgical changes along the upper posterior aspect of the calcaneus. There is air in the adjacent soft tissues. There is minimal spurring off the inferior calcaneus. Fluoroscopy time 12 seconds. Cumulative dose 0.1145 mGy. RAD/Calcaneus min 2 Views IMPRESSION: A limited lateral image of the right calcaneus was obtained intraoperatively. Electronically Signed: Vijaya Whyte MD at 17:03 EDT Tel Direct: [phone], Service support , CC: TWIN Haider; Allan Padron DPM Rn Transitional Care: Signed CBC W/DIFF, AUTOMATED Collected: 07/23/2018 Status: F Source: [place] 4:53 PM [facility] REPOSITORY TYPE CODE TESTS RESULT OUT OF RANGE REFERENCE UNITS LAB L100.1000 4.4-11.0 K/mm3 Normal WBC 8.2 LAB L100.1200 4.6-6.2 M/mm3 Normal RBC 5.33 LAB L100.1300 13.0-16.5 g/dl Normal HGB 15.6 LAB L100.1400 40-54 % Normal HCT 43.9 LAB L100.1500 80-94 fL Normal MCV 82.4 LAB L100.1600 27.0-32.0 pg Normal MCH 29.3 LAB L100.1700 32-36 g/gl Normal MCHC 35.5 LAB L100.1810 11.6-14.6 % Normal RDW CV 13.2 LAB L100.1820 35.1-43.9 fl Normal RDW SD 39.5 LAB L100.1900 150-450 K/mm3 Normal PLT 210 LAB L100.2000 6.2-12.0 fl Normal MPV 11.7 LAB L100.2100 47-70 % Normal NEUT% 56.0 LAB L100.2200 19-41 % Normal LY% 33.9 LAB L100.2300 0-10 % Normal MONO% 8.1 LAB L100.2400 0-5 % Normal EO% 1.2 LAB L100.2500 0-1 % Normal BASO% 0.4 LAB L100.2550 0.0-0.9 % Normal IM GRAN % 0.400 Result Comment: IG% - Immature Granulocytes (promyelocytes, myelocytes and metamyelocytes) > 1% indicates that a LEFT SHIFT is Present. LAB L100.2620 2.0-7.7 X10 3/uL Normal Absolute Neut 4.6 LAB L100.2720 0.83-4.51 X10 3/ul Normal Absolute Lymph 2.78 Performed By: #### L100.0100 #### [facility] [address] [place], [address] COMPREHENSIVE METABOLIC Collected: 07/23/2018 Status: F Source: [place] NI[place] 4:53 PM [facility] REPOSITORY TYPE CODE TESTS RESULT OUT OF RANGE REFERENCE UNITS LAB L501.0100 74-106 mg/dL Normal GLU 89 Result Comment: Please note revised GLUCOSE reference range effective 2017. LAB L501.1000 7-18 mg/dL Normal BUN 16 LAB L501.1100 0.70-1.30 mg/dL Normal CREAT,SERUM 1.20 Result Comment: The validity of the calculated GFR AND GFRAA in patients over 70 years has not been determined. Clinical correlation is essential. LAB L501.1110 >60 mL/min Normal EST GFR 70 Result Comment: Non- GFR Calc LAB L501.1115 >60 mL/min Normal EST GFR - AA 85 Result Comment: GFR Calc LAB L501.1300 10-20 RATIO Normal BUN/CRE 13.3 LAB L501.1500 6.4-8.2 g/dL T Normal PROT 7.6 LAB L501.1800 3.2-5.0 g/dL Normal ALB 4.1 LAB L501.1950 2.2-4.2 g/dL Normal GLOB 3.5 LAB L501.2000 0.9-2.4 RATIO Normal A/G 1.2 LAB L501.2200 8.5-10.1 mg/dL CA Normal 9.6 LAB L501.4100 15-37 U/L Normal AST 31 LAB L501.4305 45-117 U/L Normal ALK P 50 LAB L501.4405 16-61 U/L Normal ALT 52 LAB L501.4600 0.20-1.00 mg/dL T Normal BILI 0.30 LAB L501.5300 136-145 mmol/L NA Normal 140 LAB L501.5600 3.5-5.1 mmol/L K Normal 3.7 LAB L501.5900 98-107 mmol/L CL Normal 103 LAB L501.6100 21.0-32.0 mmol/L Normal CO2 31.0 LAB L501.6200 5-15 Normal GAP 6 Performed By: #### L500.4050 #### [facility] [address] [place], [address] LOWER EXT JOINT ONLY Observed: 07/15/2018 Status: F Source: [place] (ROUTINE) 3:43 PM [facility] REPOSITORY [facility] Imaging Services [address] [place] [address] Lower Ext Joint Only (Routine) MR#: [id number] Acct: [id number] Name: SUSI CORONADO Rep #: [id number] : 1975 M 42 From: Gerard Mcclure MD PCP: Pasha Haider, FISH WORM GROWER-C Status: REG CLI Study: Lower Ext Joint Only (Routine) Date of Exam: 07/15/18 Exam# [id number] Ordering Dr: Allan Padron DPFlora STUDY: MRI RIGHT ANKLE WITHOUT CONTRAST REASON FOR EXAM: Right heel pain with walking and running, evaluate for Achilles tendinitis. TECHNIQUE: Standardized fat and water weighted pulse sequences were obtained in all 3 orthogonal planes. COMPARISON: None. FINDINGS: Normal subcutis adipose space. There is very small volume of fluid in the proximal posterior tibialis tendon sheath (inversion recovery axial images 1, 2). The posterior tibialis tendon is morphologically normal. Normal flexor digitorum longus tendon. Normal flexor hallucis longus tendon. There is a small longitudinal split of the perimalleolar peroneus brevis tendon with a C shaped configuration (T1 axial images 12-16). Normal peroneus longus tendon. Normal tibialis anterior tendon. Normal extensor hallucis longus tendon. Normal extensor digitorum longus tendons. Normal Achilles tendon and teno-osseous insertion without increased intrasubstance signal or fusiform thickening. There is a small posterior calcaneal enthesophyte. There is no retrocalcaneal bursitis. Normal plantar fascia. There is a small plantar calcaneal enthesophyte. Normal intrinsic muscles of the rearfoot. Normal distal tibiofibular syndesmotic ligamentous complex. Normal lateral ligamentous complex. Normal subtalar ligaments and sinus tarsi. Normal deltoid ligamentous complexes. Normal plantar calcaneonavicular (spring) ligament. Normal tibiotalar articulation. Normal talar dome. There is a small anterior spur of the head/neck junction of the talus (T1 sagittal image 12) Normal subtalar articulations. Normal talonavicular articulation. Normal calcaneocuboid articulation. Normal navicular-cuneiform articulations. MRI/Lower Ext Joint Only (Routine) IMPRESSION: Small longitudinal split of the peroneus brevis tendon. Very mild posterior tibialis tenosynovitis. Small calcaneal enthesophytes. Small anterior spur of the head/neck junction of the talus. No demonstrated Achilles tendinosis. Electronically Signed: Gerard Mcclure MD at 14:44 EDT Tel , Service support , CC: TWIN Haider; Allan Padron DPM Rn Transitional Care: Signed LIPID Collected: 02/25/2018 Status: F Source: [facility] 7:23 AM [facility] REPOSITORY TYPE CODE TESTS RESULT OUT OF REFERENCE UNITS RANGE LAB CHOL(LOINC 131-200 mg/dL ) Cholesterol 158 Result Comment: Cholesterol Reference Interval: Less than 200 Desirable 200-239 Borderline high risk 240 and above High risk LAB TRIG(LOINC) 40-150 mg/dL Triglycerides High 165 Result Comment: Triglyceride Reference Interval: Less than 150 Normal 150-199 Borderline high risk 200-499 High risk 500 or higher Very high risk LAB HD(LOINC) 35-90 mg/dL HDL Cholesterol 40 Result Comment: HDL Reference Interval: Less than 40 Low - high risk 60 or above Optimal/lowers risk LAB LDL(LOINC) 0-130 mg/dL LDL Cholesterol 85 Result Comment: LDL is a calculated result and requires a 12-hr fast. LDL Reference Interval: Less than 100 Optimal 100-129 Near or above optimal 130-159 Borderline high risk 160-189 High risk 190 and above Very high risk Performed By: #### LIPID, CMP, GFR, CBC, ADIFF, ANEU #### [address] [place], [place] [address] CMP Collected: 02/25/2018 Status: F Source: [facility] 7:23 AM [facility] REPOSITORY TYPE CODE TESTS RESULT OUT OF REFERENCE UNITS RANGE LAB GLU(LOINC) 70-105 mg/dL Glucose High Level 110 LAB NA(LOINC) 136-146 mEq/L Sodium Level 144 LAB K(LOINC) 3.5-5.1 mEq/L Potassium Level 4.8 LAB CL(LOINC) 98-107 mEq/L Chloride 106 LAB CO2(LOINC) 22-29 mEq/L CO2 High 31 LAB EBAL(LOINC mEq/L ) Electrolyte Balance 7.0 LAB BUN(LOINC) 7.0-18.0 mg/dL BUN High 19.7 LAB CRE(LOINC) 0.6-1.2 mg/dL Creatinine Lvl (s) 1.1 LAB BC(LOINC) 7-27 ratio BUN/Creatinine 18 Ratio LAB CA(LOINC) 8.4-10.2 mg/dL Calcium Lvl 9.4 LAB PROT(LOINC 6.0-8.3 G/dL ) Total Protein 6.6 LAB ALB(LOINC) 3.5-5.0 G/dL Albumin Level 4.4 LAB GLB(LOINC) G/dL Globulin 2.2 LAB AG(LOINC) 1.1-2.5 ratio A/G Ratio 2.0 LAB BILT(LOINC 0.2-1.0 mg/dL ) Bili Total 0.3 LAB AP(LOINC) 40-135 IU/L Alk Phos 43 LAB AST(LOINC) 10-40 IU/L AST/SGOT 29 LAB ALT(LOINC) 10-35 IU/L ALT/SGPT High 36 Performed By: #### LIPID, CMP, GFR, CBC, ADIFF, ANEU #### [address] [place], [place] [address] .GFR Collected: 02/25/2018 Status: F Source: [facility] 7:23 AM [facility] REPOSITORY TYPE CODE TESTS RESULT OUT OF REFERENCE UNITS RANGE LAB GFRAA(LOINC ml/min/1.73 ) sqm GFR 86 Mauritanian Result Comment: GFR Population mean for , Non- Americans Ages 20-29 = 116 mL/min/1.73 sq.m. Ages 30-39 = 107 mL/min/1.73 sq.m. Ages 40-49 = 99 mL/min/1.73 sq.m. Ages 50-59 = 93 mL/min/1.73 sq.m. Ages 60-69 = 85 mL/min/1.73 sq.m. Ages 70+ = 75 mL/min/1.73 sq.m. Chronic Kidney Disease: Less than 60 mL/min/1.73 square meters End Stage Renal Disease: Less than 15 mL/min/1.73 square meters LAB GFRNO(LOINC) ml/min/1.73sqm GFR Non- >60 Result Comment: GFR Population mean for , Non- Americans Ages 20-29 = 116 mL/min/1.73 sq.m. Ages 30-39 = 107 mL/min/1.73 sq.m. Ages 40-49 = 99 mL/min/1.73 sq.m. Ages 50-59 = 93 mL/min/1.73 sq.m. Ages 60-69 = 85 mL/min/1.73 sq.m. Ages 70+ = 75 mL/min/1.73 sq.m. Chronic Kidney Disease: Less than 60 mL/min/1.73 square meters End Stage Renal Disease: Less than 15 mL/min/1.73 square meters Performed By: #### LIPID, CMP, GFR, CBC, ADIFF, ANEU #### [address] [address] CBC Collected: 02/25/2018 Status: F Source: [facility] 7:23 [facility] REPOSIT[facility] TYPE CODE TESTS RESULT OUT OF REFERENCE UNITS RANGE LAB WBC(LOINC) 4.60-10.80 10 3/mcL WBC 8.30 LAB RBCCT(LOINC 4.04-6.13 10 6/mcL ) RBC 5.27 LAB HGB(LOINC) 14.0-18.0 G/dL Hgb 15.4 LAB HCT(LOINC) 42.0-52.0 % Hct 44.4 LAB MCV(LOINC) 80.0-94.0 fL MCV 84.2 LAB MCH(LOINC) 27.0-31.2 pg MCH 29.2 LAB MCHC(LOINC) 31.8-35.4 G/dL MCHC 34.7 LAB RDW(LOINC) 11.5-14.5 % RDW 13.3 LAB PLT(LOINC) 130-400 10 3/mcL Platelet 217 LAB MPV(LOINC) 7.4-10.4 fL MPV 10.0 Performed By: #### LIPID, CMP, GFR, CBC, ADIFF, ANEU #### [address] [address] .AUTO DIFF Collected: 02/25/2018 Status: F Source: [facility] 7:23 AM [facility] REPOSITORY TYPE CODE TESTS RESULT OUT OF REFERENCE UNITS RANGE LAB GAIL(LOINC) 37.0-80.0 % Neutrophil % 56.3 LAB LYM(LOINC) 10.0-50.0 % Lymphocyte % 28.3 LAB MON(LOINC) 1.7-13.0 % Monocyte High % 13.5 LAB EO(LOINC) 0.0-7.0 % Eosinophil % 1.2 LAB BAS(LOINC) 0.0-2.5 % Basophil % 0.7 LAB ABLYM(LOIN 0.77-3.85 10 3/mcL C) Lymphocyte, 2.30 Absolute LAB JEFERSON(LOINC 0.15-1.00 10 3/mcL ) High Monocyte, 1.10 Absolute LAB AEOS(LOINC 0.00-0.40 10 3/mcL ) Eosinophil, 0.10 Absolute LAB ABAS(LOINC 0.00-0.19 10 3/mcL ) Basophil, 0.10 Absolute Performed By: #### LIPID, CMP, GFR, CBC, ADIFF, ANEU #### [address] [address] .NEUABS Collected: 02/25/2018 Status: F Source: [facility] 7:23 AM [facility] REPOSITORY TYPE CODE TESTS RESULT OUT OF REFERENCE UNITS RANGE LAB ANEU(LOINC) 2.85-6.16 10 3/mcL Neutrophil, 4.60 Absolute Performed By: #### LIPID, CMP, GFR, CBC, ADIFF, ANEU #### [place] [id number] ALLERGIES ALLERGIES DATE TYPE / CODE NAME / CODE REACTION SEVERITY SOURCE 09/25/2018 Drug No Known Unknown [facility] Allergy/4160 Allergies/F00 Hospital 61227(SNOMED 0327618(RXNOR Repository CT) M) ENCOUNTERS ENCOUNTERS ADMIT/DISCHARGE ACCOUNT NUMBER ADMITTING ENCOUNTER LOCATION SOURCE CLASS 10/02/2018/10/02/20 [id number] Ambulatory BBuilding:SHANITA Heart 18 AB [facility] [place] Repository 10/01/2018/10/01/20 [id number] Ambulatory BBuilding:ROCKY Heart 18 T [facility] [place] Repository 09/25/2018/09/25/20 [id number] Emergency [address] ding:ED Repository 09/17/2018 [id number] Ambulatory [facility] ding:LABSPEC Repository 09/12/2018/09/12/20 [id number] Ambulatory BBuilding:RA Heart D [facility] [place] Repository 08/26/2018/08/30/20 [id number] Ambulatory BBuilding:DR Heart [address] [place] [address] Repository 08/08/2018/08/08/20 [id number] Ambulatory [address] ding:SDCRoom Repository : AC06 07/23/2018 [id number] Ambulatory [facility] ding:MFPLAB Repository 07/15/2018 [id number] Ambulatory [facility] ding:MRI Repository 02/25/2018/03/01/20 [id number] Ambulatory SLY Heart [address] [place] [address] ding:[facility] Repository PAYERS PAYERS ENCOUNTER GUARANTOR PAYER SUBSCRIBER SOURCE 10/02/2018 SUSI Webb Primary SUSI Webb [facility] AYERSDOB: Insurance:MEDICAL AYERSDOB: [facility] [id number] SHIRLEY 6[address] [id number] Repository SHARPS Number: [address] [place] [id number] [email or web address] Date:2018-10-02 55254Aqb: (330) OOMINTERNET.NETT [id number] [phone] el: [phone]) Name:BPO BOX (HP) (HP) [address] [place] [address] 000-0000 (WP) [id number]: 10/01/2018 SUSI Webb Primary SUSI Webb [facility] AYERSDOB: Insurance:MEDICAL AYERSDOB: [facility] [address] [id number] Repository SHARPS Number: [address] [place], [place] [id number] [place] [address]~[email or web address] Date:2018-09-26 14637Rux: (330) OOMINTERNET.[facility] [id number] [phone] el: ([phone]) Name:BPO BOX (HP) (HP) [address] [place] [address] 000-0000 (WP) [id number]: 09/25/2018 SUSI Webb Primary SUSI Webb [place] [id number] [place] Insurance:MEDICAL AYERSDOB: [facility] [id number] [address]Zag: Number: Repository [id number] () Date:[id number] [address] [address]VM: 09/25/2018 Secondary NOT GIVENUNK [place] Insurance:SELF PAY [facility] Number: Effective Repository Date:2018-09-25 09/17/2018 SUSI Webb Primary SUSI Webb [place] [id number] [place] Insurance:MEDICAL AYERSDOB: [facility] [id number] [address]Zak: Number: Repository [id number] (HP) Date:[id number] [address] [address]KR: 09/17/2018 Secondary NOT GIVENUNK [place] Insurance:SELF PAY [facility] Number: Effective Repository Date:2018-09-17 09/12/2018 SUSI Webb Primary SUSI Webb [facility] AYERSDOB: Insurance:MEDICAL AYERSDOB: [facility] [address] [id number] Repository SHARPS Number: [address] [place], [place] [id number] [place] [email or web address] Date:2018-09-08Tel: (330) OOMINTERNET.[facility] [id number] [phone] el: [phone]) Name:BPO BOX (HP) (HP) [address] [place] [address] 000-0000 (WP) [id number]: 08/26/2018 SUSI Webb Primary SUSI Webb [facility] AYERSDOB: Insurance:MEDICAL AYERSDOB: [facility] [address] [id number] Repository SHARPS Number: [address] [place], [place] [id number] [place] [address]~[email or web address] Date:2018-08-26Tel: (330) OOMINTERNET.[facility] [id number] [phone] el: ([phone]) Name:BPO BOX (HP) [address] [place] [address] 000-0000 (WP) (HP)Tel: [phone]: (WP) [phone] 08/08/2018 SUSI Webb Primary SUSI Webb [place] [id number] [place] Insurance:MEDICAL AYERSDOB: [facility] [id number] City [facility] [address]Rwu: Number: Repository [id number] (HP) Date:[id number] [address]UW: 08/08/2018 Secondary NOT GIVENUNK [place] Insurance:SELF PAY [facility] Number: Effective Repository Date:2018-07-16 07/23/2018 SUSI Webb Primary SUSI P [place] [id number] [place] Insurance:MEDICAL AYERSDOB: [facility] [id number] [facility] [address]Dos: Number: Repository [id number] (HP) Date:6135-02-61KN [address] [address]NA: 07/23/2018 Secondary NOT GIVENUNK [place] Insurance:SELF PAY [facility] Number: Effective Repository Date:2018-07-23 07/15/2018 SUSI Webb Primary SUSI P [place] [id number] [place] Insurance:MEDICAL AYERSDOB: [facility] [id number] [facility] [address]Wsr: Number: Repository [id number] (HP) Date:4837-41-06BR [address] [address]ER: 07/15/2018 Secondary NOT GIVENUNK [place] Insurance:SELF PAY [facility] Number: Effective Repository Date:2018-07-04 02/25/2018 SUSI Webb Primary SUSI [facility] AYERSDOB: Insurance:MEDICAL AYERSDOB: [facility] [id number] [address] [id number] Repository SHARPS Number: [address] [place], [place] [id number] [place] [email or web address] Date:2018-02-2588588Hnb: (175) OOMINTERNET.NETT [id number] [phone] el: ([phone]) Name:BPO BOX (HP) [address] [place] [address] 000-0000 (WP) (HP)Tel: [phone]: (wp) [phone]
== END ==
PROVIDERS: Family Provider Nurse Practitioner Family; PCP Nurse Practitioner Family; Referring Provider Podiatrist; Visit Provider Podiatrist
DX: L03.115 Cellulitis of right lower limb (principal)
CPT/HCPCS: 87070; 87075; 87077; 87186; 87205

== ENCOUNTER 2018-09-25 19:45 | Emergency (ER) | payer OTHER, SELFPAY ==
[2018-09-25 19:48] VITALS: BP 167/91; PULSE 90; PULSE 93; RESP 17; RESP 18; TEMP 36.3; O2SAT 94; BMI 38.8
--- NOTE | 2018-09-25 19:55 | US_ITS ---
STUDY: VENOUS DOPPLER ULTRASOUND - RIGHT LOWER EXTREMITY REASON FOR EXAM: Male, 43 years old. Swelling TECHNIQUE: Ultrasound evaluation of the deep vein system to include nicolas-scale imaging and compression was performed. Nicolas-scale imaging and Doppler sonographic evaluation, including duplex spectral analysis and qualitative color flow sonography, was performed. COMPARISON: None. FINDINGS: Common Femoral Vein: Normal compression, spontaneity and augmentation. Normal color Doppler. Common Femoral Vein/Greater Saphenous Junction: Normal compression, spontaneity and augmentation. Normal color Doppler. Deep Femoral Vein: Normal compression, spontaneity and augmentation. Normal color Doppler. Femoral Proximal: Normal compression, spontaneity and augmentation. Normal color Doppler. Femoral Middle: Normal compression, spontaneity and augmentation. Normal color Doppler. Femoral Distal: Normal compression, spontaneity and augmentation. Normal color Doppler. Popliteal Vein: Normal compression, spontaneity and augmentation. Normal color Doppler. Posterior Tibial Vein: Normal compression, spontaneity and augmentation. Normal color Doppler. Peroneal Vein: Normal compression, spontaneity and augmentation. Normal color Doppler. US/Venous Duplex Imag/Limited/Uni IMPRESSION: Normal venous Doppler ultrasound of the lower extremity. Electronically Signed: Allan Mccartney MD at 20:38 EST , Service support ,
--- NOTE | 2018-09-25 20:52 | ED.DCSUM_ITS ---
- ER Visit Summary Date of Service: 09/25/18 Chief Complaint: Acute right leg swelling History of Present Illness: The patient is a 43 M who is 7 weeks postop right heel spur. He was sent to the emergency room to evaluate for DVT. He states the swelling started past 24-48 hours. He denies chest pain or shortness of breath. He denies right lower extremity pain. He denies paresthesia, anesthesia motors. He has no symptoms of claudication. There is a history hypertension. Physical Examination: The right lower extremity is swollen. There is no leg vein distention. There is no palpable cords. DP and PT pulses are palpable. He has full active range of motion of his toes, ankle and knee. Heart is regular without murmur, gallop or rub. Lungs are clear to auscultation. Vital signs noted and blood pressure is elevated 167/91. Test Results: Venous duplex study of the right lower extremity was negative for DVT per radiologist Emergency Department Course and Treatment: Venous duplex to evaluate for DVT ve rsus lymphedema Treatment Plan: Home-going instructions for lymphedema Disposition: Discharged home in stable condition with spouse Impression: Lymphedema right lower extremity status post surgery This note was generated with [employer] dictation software. It may contain incorrect words, spelling, and punctuation that were not noted in review of the chart prior to signing ED Disposition - Plan for ED Patient: Disposition: Home or Assisted Living Chief Complaint: Lower Extremity Injury Instructions: ED Lymphedema Referrals: Pasha Haider, ERNESTINA-C [Primary Care Provider] - As Needed
[2018-09-25 20:59] VITALS: BP 158/60; PULSE 90; RESP 16
== END 2018-09-25 21:00 | disposition home or self-care (01) ==
PROVIDERS: Emergency Provider Emergency Medicine; Family Provider Nurse Practitioner Family; PCP Nurse Practitioner Family
DX: I89.0 Lymphedema, not elsewhere classified (principal); I10 Essential (primary) hypertension
CPT/HCPCS: 93971; 99282

== ENCOUNTER → 2019-03-04 07:32 | Outpatient (CLI) | payer OTHER, SELFPAY ==
--- NOTE | 2019-03-04 07:46 | MRI_ITS ---
STUDY: MRI RIGHT ANKLE WITHOUT CONTRAST REASON FOR EXAM: Medial pain and lump, spur removal in 2018. TECHNIQUE: Standardized fat and water weighted pulse sequences were obtained in all 3 orthogonal planes. COMPARISON: MRI images 07/15/2018 and radiographs 08/08/2018. FINDINGS: There is postoperative scarring in the subcutis adipose space. Normal posterior tibialis tendon. Normal flexor digitorum longus tendon. Normal flexor hallucis longus tendon. There is a small longitudinal split of the perimalleolar peroneus brevis tendon (T1 axial images 14-18) as on the prior study. Normal peroneus longus tendon. Normal tibialis anterior tendon. Normal extensor hallucis longus tendon. Normal extensor digitorum longus tendons. There are postoperative scarring/tendinosis of the Achilles tendon insertion with an intrasubstance partial tear of the medial aspect of the Achilles tendon insertion, measuring 2.3 cm in length (inversion recovery sagittal image 15; T2 axial images 17-20). There are postoperative changes of the dorsal aspect of the posterior tuberosity of the calcaneus with bone edema and anchors (inversion recovery sagittal images 5-13). Normal plantar fascia. There is a small plantar calcaneal enthesophyte. Normal intrinsic muscles of the rearfoot. Normal distal tibiofibular syndesmotic ligamentous complex. Normal lateral ligamentous complex. Normal subtalar ligaments and sinus tarsi. Normal deltoid ligamentous complexes. Normal plantar calcaneonavicular (spring) ligament. There is a small osteochondral lesion of the lateral talar dome (inversion recovery sagittal images 6, 7) measuring 0.45 x 0.25 cm (AP x transverse) with cystic change of the fragment. There is a small dorsal spur at the junction of the head/neck of the talus (T1 sagittal image 12) as on the prior study. Normal subtalar articulations. Normal talonavicular articulation. Normal calcaneocuboid articulation. Normal navicular-cuneiform articulations. MRI/Lower Ext Joint Only (Routine) IMPRESSION: Postoperative scarring/tendinosis of the Achilles tendon insertion with intrasubstance partial tear and postsurgical changes of the posterior tuberosity of the calcaneus with bone edema. Small longitudinal split of the peroneus brevis tendon as on the prior study. Small osteochondral lesion of the lateral talar dome. Small plantar calcaneal enthesophyte. Small dorsal spur at the junction of the head/neck of the talus. Electronically Signed: Gerard Mcclure MD at 10:30 EDT Tel , Service support ,
== END ==
PROVIDERS: Family Provider Nurse Practitioner Family; PCP Nurse Practitioner Family; Referring Provider Podiatrist; Visit Provider Podiatrist
DX: M77.31 Calcaneal spur, right foot (principal); M76.61 Achilles tendinitis, right leg
CPT/HCPCS: 73721